=== PATIENT | female | born 1980 | race Caucasian/White ===

== ENCOUNTER 2021-04-03 19:27 | Emergency (ER) | payer OTHER ==
[2021-04-03 19:41] VITALS: TEMP 98.4; BMI 31.0
[2021-04-03] MEDS ORDERED: ACETAMINOPHEN 325 MG TABLET (FP) PO ONE (20:02)
[2021-04-03] MEDS ORDERED: ACETAMINOPHEN 325 MG TABLET (FP) ONE (20:26)
[2021-04-03 21:25] LABS: EPI CELLS 5 /uL (0-25.1); HYALINE CASTS 0 /uL (0-3.1); URINE APPEARANCE CLEAR; URINE BACTERIA 60 /uL (0-1359); URINE BILIRUBIN NEGATIVE (NEGATIVE); URINE COLOR YELLOW; URINE GLUCOSE (UA) NEGATIVE (NEGATIVE); URINE KETONE NEGATIVE (NEGATIVE); URINE LEUK ESTERASE NEGATIVE (NEGATIVE); URINE NITRITE NEGATIVE (NEGATIVE); URINE PROTEIN NEGATIVE (NEGATIVE); URINE RBC 45 /uL (0-23.9); URINE WBC 3 /uL (0-25.8)
[2021-04-03 23:03] VITALS: BP 115/73; PULSE 88
== END 2021-04-03 23:06 | disposition home or self-care (01) ==
LOC: JER 19:27
DX: O20.0 Threatened abortion (principal); O26.851 Spotting complicating pregnancy, first trimester; Z3A.01 Less than 8 weeks gestation of pregnancy
CPT/HCPCS: 36415; 76817-TC; 81003; 84702; 86850; 86900; 86901; 87086; 99284-25

== ENCOUNTER 2021-04-05 13:30 | Emergency (ER) | payer OTHER ==
[2021-04-05 13:47] VITALS: TEMP 98.2; BMI 31.0
[2021-04-05] MEDS ORDERED: ACETAMINOPHEN 1000 MG/100 ML VIAL (NON FORMULARY) IVPB ONE (14:25)
[2021-04-05] MEDS ORDERED: SODIUM CHLORIDE 0.9% 500 ML INFUS.BAG IV ONE (14:25)
[2021-04-05] MEDS ORDERED: ACETAMINOPHEN INJECTION 100 ML IVPB ONE (14:26)
[2021-04-05 14:29] LABS: BASO % 0.2 % (0-2.0); EOS % 3.4 % (0-4.5); HEMATOCRIT 38.8 % (32.4-45.2); HEMOGLOBIN 13.4 GM/dL (10.7-15.3); LYMPH % 14.1 % (8-40); MCHC 34.6 g/dl (32.0-36.0); MEAN CELL VOLUME 89.5 fl (80-96); MEAN PLT VOLUME 8.4 fl (7.5-11.1); MONO % 6.2 % (3.8-10.2); NEUT % 76.1 % (42.8-82.8); PLATELET COUNT 196 10^3/uL (134-434); RBC 4.34 M/mm3 (3.60-5.2); RDW 12.8 % (11.6-15.6); WHITE BLOOD COUNT 8.7 K/mm3 (4.0-10.0)
[2021-04-05 14:49] LABS: ALBUMIN 3.8 g/dl (3.4-5.0); BLOOD UREA NITROGEN 9.1 mg/dL (7-18); CALCIUM 8.7 mg/dL (8.5-10.1)
[2021-04-05 14:53] LABS: CREATININE 0.8 mg/dL (0.55-1.3)
[2021-04-05 14:54] LABS: BILIRUBIN,TOTAL 0.6 mg/dL (0.2-1); TOT PROT 7.3 g/dl (6.4-8.2)
[2021-04-05 15:34] LABS: PH,URINE 6.5 (5.0-8.0); URINE APPEARANCE CLEAR; URINE BILIRUBIN NEGATIVE (NEGATIVE); URINE COLOR YELLOW; URINE GLUCOSE (UA) NEGATIVE (NEGATIVE); URINE KETONE NEGATIVE (NEGATIVE); URINE LEUK ESTERASE NEGATIVE (NEGATIVE); URINE NITRITE NEGATIVE (NEGATIVE); URINE PROTEIN NEGATIVE (NEGATIVE); URINE UROBILINOGEN 0.2 mg/dL (0.2-1.0)
[2021-04-05 16:26] VITALS: BP 134/75; PULSE 80
[2021-04-05 16:32] LABS: URINE RBC 12.1 /uL (0-23.9); URINE WBC 3.6 /uL (0-25.8)
[2021-04-05 16:33] LABS: EPI CELLS 2.1 /uL (0-25.1); HYALINE CASTS 0.12 /uL (0-3.1); URINE BACTERIA 24.2 /uL (0-1359)
== END 2021-04-05 18:47 | disposition home or self-care (01) ==
LOC: JER 13:30
PROC: 3E0333Z Introduction of Anti-inflammatory into Peripheral Vein, Percutaneous Approach (ICD-10-PCS; principal; 2021-04-05)
DX: O03.9 Complete or unspecified spontaneous abortion without complication (principal)
CPT/HCPCS: 36415; 76817-TC; 80053; 81003; 84702; 85025; 87086; 99284-25; J0131

== ENCOUNTER 2021-08-16 18:56 | Emergency (ER) | payer OTHER ==
[2021-08-16 19:14] VITALS: TEMP 98.1; BMI 28.0
[2021-08-16 20:50] LABS: BASO % 0.2 % (0-2.0); EOS % 5.4 % (0-4.5); HEMATOCRIT 38.3 % (32.4-45.2); HEMOGLOBIN 13.2 GM/dL (10.7-15.3); MCH 30.5 pg (25.7-33.7); MCHC 34.4 g/dl (32.0-36.0); MEAN CELL VOLUME 88.7 fl (80-96); MEAN PLT VOLUME 8.7 fl (7.5-11.1); MONO % 6.9 % (3.8-10.2); NEUT % 60.5 % (42.8-82.8); PLATELET COUNT 196 10^3/uL (134-434); RBC 4.32 M/mm3 (3.60-5.2); RDW 13.3 % (11.6-15.6); WHITE BLOOD COUNT 5.8 K/mm3 (4.0-10.0)
[2021-08-16 20:57] LABS: CHLORIDE 110 mmol/L (98-107); SODIUM 142 mmol/L (136-145)
[2021-08-16 20:59] LABS: CALCIUM 8.3 mg/dL (8.5-10.1)
[2021-08-16 21:00] LABS: ALBUMIN 3.6 g/dl (3.4-5.0); ANION GAP 4 MMOL/L (8-16); BLOOD UREA NITROGEN 13.9 mg/dL (7-18); CO2 28 mmol/L (21-32); GLUCOSE,RANDOM 105 mg/dL (74-106)
[2021-08-16 21:03] LABS: CREATININE 0.9 mg/dL (0.55-1.3); SGOT/AST 14 U/L (15-37); SGPT/ALT 29 U/L (13-61)
[2021-08-16 21:05] LABS: BILIRUBIN,TOTAL 0.4 mg/dL (0.2-1)
[2021-08-16 21:06] LABS: ALK PHOS 47 U/L (45-117)
[2021-08-17 00:08] VITALS: BP 130/76; PULSE 86
== END 2021-08-17 00:09 | disposition home or self-care (01) ==
LOC: JER 18:56
DX: R07.9 Chest pain, unspecified (principal); F41.9 Anxiety disorder, unspecified
CPT/HCPCS: 36415; 71046-TC-FY; 71275-TC; 80053; 84484; 84702; 85025; 85379; 93005; 93010; 99285-25; Q9967

== ENCOUNTER 2021-11-12 01:32 | Observation (INO) | payer OTHER ==
[2021-11-12 02:45] LABS: BASO % 0.2 % (0-2.0); EOS % 2.7 % (0-4.5); HEMATOCRIT 41.1 % (32.4-45.2); HEMOGLOBIN 14.1 GM/dL (10.7-15.3); LYMPH % 18.1 % (8-40); MCH 30.7 pg (25.7-33.7); MCHC 34.2 g/dl (32.0-36.0); MEAN CELL VOLUME 89.8 fl (80-96); MEAN PLT VOLUME 8.7 fl (7.5-11.1); MONO % 6.4 % (3.8-10.2); NEUT % 72.6 % (42.8-82.8); PLATELET COUNT 209 10^3/uL (134-434); RBC 4.58 M/mm3 (3.60-5.2); RDW 13.1 % (11.6-15.6); WHITE BLOOD COUNT 6.9 K/mm3 (4.0-10.0)
[2021-11-12 03:04] LABS: CHLORIDE 107 mmol/L (98-107); SODIUM 141 mmol/L (136-145)
[2021-11-12 03:07] LABS: ALBUMIN 4.1 g/dl (3.4-5.0); ANION GAP 3 MMOL/L (8-16); BLOOD UREA NITROGEN 17.6 mg/dL (7-18); CO2 31 mmol/L (21-32); GLUCOSE,RANDOM 109 mg/dL (74-106); MAGNESIUM 2.1 mg/dL (1.8-2.4)
[2021-11-12 03:10] LABS: PHOSPHOROUS 3.3 mg/dL (2.5-4.9); SGOT/AST 23 U/L (15-37); SGPT/ALT 42 U/L (13-61)
[2021-11-12 03:12] LABS: BILIRUBIN,TOTAL 0.4 mg/dL (0.2-1); TOT PROT 7.9 g/dl (6.4-8.2)
[2021-11-12 03:13] LABS: ALK PHOS 70 U/L (45-117)
[2021-11-12] MEDS ORDERED: ACETAMINOPHEN 325 MG TABLET (FP) PO PRN (05:16)
[2021-11-12 07:57] LABS: BASO % 0.1 % (0-2.0); EOS % 1.5 % (0-4.5); HEMOGLOBIN 13.4 GM/dL (10.7-15.3); LYMPH % 18.3 % (8-40); MCH 30.8 pg (25.7-33.7); MCHC 34.3 g/dl (32.0-36.0); MEAN PLT VOLUME 8.8 fl (7.5-11.1); MONO % 4.4 % (3.8-10.2); NEUT % 75.7 % (42.8-82.8); PLATELET COUNT 202 10^3/uL (134-434); RBC 4.33 M/mm3 (3.60-5.2); RDW 12.9 % (11.6-15.6); WHITE BLOOD COUNT 5.4 K/mm3 (4.0-10.0)
[2021-11-12 08:11] LABS: MAGNESIUM 1.9 mg/dL (1.8-2.4)
[2021-11-12 08:12] LABS: ALBUMIN 3.8 g/dl (3.4-5.0); BLOOD UREA NITROGEN 16.2 mg/dL (7-18)
[2021-11-12 08:14] LABS: CREATININE 0.9 mg/dL (0.55-1.3)
[2021-11-12 08:15] LABS: PHOSPHOROUS 3.5 mg/dL (2.5-4.9)
[2021-11-12 08:16] LABS: TOT PROT 7.1 g/dl (6.4-8.2)
[2021-11-12 08:17] LABS: BILIRUBIN,TOTAL 0.4 mg/dL (0.2-1)
[2021-11-12 09:20] LABS: ACTIVATED PTT 28.9 SECONDS (25.2-36.5); INR 1.04 (0.83-1.09)
[2021-11-12] MEDS ORDERED: ASPIRIN 81 MG CHEWABLE TABLETS ONE (10:16)
[2021-11-12] MEDS ORDERED: ENOXAPARIN NA (PORCINE) 40 MG/0.4 ML DISP.SYRIN SQ ONE (10:17)
[2021-11-12] MEDS: ENOXAPARIN NA (PORCINE) 40 MG/0.4 ML DISP.SYRIN SQ SCH (10:23)
[2021-11-12] MEDS ORDERED: ASPIRIN 81 MG CHEWABLE TABLETS PO ONE (10:30)
[2021-11-12 14:29] LABS: EPI CELLS 9 /uL (0-25.1); HYALINE CASTS 0 /uL (0-3.1); PH,URINE 6.5 (5.0-8.0); URINE APPEARANCE CLEAR; URINE BACTERIA 51 /uL (0-1359); URINE BILIRUBIN NEGATIVE (NEGATIVE); URINE COLOR YELLOW; URINE GLUCOSE (UA) NEGATIVE (NEGATIVE); URINE KETONE NEGATIVE (NEGATIVE); URINE LEUK ESTERASE NEGATIVE (NEGATIVE); URINE NITRITE NEGATIVE (NEGATIVE); URINE PROTEIN NEGATIVE (NEGATIVE); URINE RBC 53 /uL (0-23.9); URINE UROBILINOGEN 0.2 mg/dL (0.2-1.0); URINE WBC 5 /uL (0-25.8)
[2021-11-13 00:30] VITALS: BMI 31.6
[2021-11-13 08:26] LABS: BASO % 0.3 % (0-2.0); EOS % 3.4 % (0-4.5); HEMATOCRIT 39.6 % (32.4-45.2); HEMOGLOBIN 13.2 GM/dL (10.7-15.3); LYMPH % 32.8 % (8-40); MCH 30.2 pg (25.7-33.7); MCHC 33.4 g/dl (32.0-36.0); MEAN CELL VOLUME 90.3 fl (80-96); MEAN PLT VOLUME 9.5 fl (7.5-11.1); MONO % 7.7 % (3.8-10.2); NEUT % 55.8 % (42.8-82.8); PLATELET COUNT 202 10^3/uL (134-434); RBC 4.39 M/mm3 (3.60-5.2); RDW 13.1 % (11.6-15.6); WHITE BLOOD COUNT 4.7 K/mm3 (4.0-10.0)
[2021-11-13 08:47] LABS: CALCIUM 8.1 mg/dL (8.5-10.1)
[2021-11-13 08:48] VITALS: BP 130/70; PULSE 86; TEMP 98.8
[2021-11-13 08:48] LABS: BLOOD UREA NITROGEN 18.2 mg/dL (7-18)
[2021-11-13 08:51] LABS: CREATININE 0.8 mg/dL (0.55-1.3)
[2021-11-13] MEDS: ENOXAPARIN NA (PORCINE) 40 MG/0.4 ML DISP.SYRIN SQ SCH (09:37)
== END 2021-11-13 14:38 | disposition home or self-care (01) ==
LOC: JER 01:32 → SUATTDRO 01:32 → JERBED 04:04 → J4W 23:49
PROVIDERS: ADMIT Internal Medicine; ATTEND Internal Medicine
PROC: 3E023GC Introduction of Other Therapeutic Substance into Muscle, Percutaneous Approach (ICD-10-PCS; principal; 2021-11-12)
DX: I47.1 Supraventricular tachycardia (principal); R00.2 Palpitations; I10 Essential (primary) hypertension; R79.89 Other specified abnormal findings of blood chemistry; R07.89 Other chest pain
CPT/HCPCS: 36415; 71045-TC-FY; 71046-TC-FY; 80048; 80053; 80061; 81003; 82962; 83036; 83735; 84100; 84439; 84443; 84481; 84484; 84703; 85025; 85610; 85730; 87086; 93005; 93010; 93306-TC; 93351; 96372; 99285-25; C9803; G0378; U0003; U0005

== ENCOUNTER 2021-12-03 09:44 | Emergency (ER) | payer OTHER ==
[2021-12-03 09:58] VITALS: TEMP 98.5; BMI 31.0
[2021-12-03 12:44] LABS: BASO % 0.1 % (0-2.0); EOS % 1.6 % (0-4.5); HEMATOCRIT 40.8 % (32.4-45.2); HEMOGLOBIN 13.8 GM/dL (10.7-15.3); LYMPH % 16.7 % (8-40); MCH 30.6 pg (25.7-33.7); MCHC 33.8 g/dl (32.0-36.0); MEAN CELL VOLUME 90.6 fl (80-96); MEAN PLT VOLUME 9.3 fl (7.5-11.1); MONO % 6.3 % (3.8-10.2); NEUT % 75.3 % (42.8-82.8); PLATELET COUNT 202 10^3/uL (134-434); RDW 12.8 % (11.6-15.6); WHITE BLOOD COUNT 5.7 K/mm3 (4.0-10.0)
[2021-12-03 13:05] LABS: BLOOD UREA NITROGEN 12.8 mg/dL (7-18)
[2021-12-03 13:08] LABS: CREATININE 0.8 mg/dL (0.55-1.3)
[2021-12-03 13:10] LABS: TOT PROT 7.6 g/dl (6.4-8.2)
[2021-12-03 13:37] LABS: CALCIUM 8.5 mg/dL (8.5-10.1)
[2021-12-03 14:38] LABS: EPI CELLS 10 /uL (0-25.1); HYALINE CASTS 1 /uL (0-3.1); PH,URINE 5.5 (5.0-8.0); URINE APPEARANCE CLEAR; URINE BACTERIA 83 /uL (0-1359); URINE BILIRUBIN NEGATIVE (NEGATIVE); URINE COLOR YELLOW; URINE GLUCOSE (UA) NEGATIVE (NEGATIVE); URINE KETONE TRACE (NEGATIVE); URINE LEUK ESTERASE NEGATIVE (NEGATIVE); URINE NITRITE NEGATIVE (NEGATIVE); URINE PROTEIN NEGATIVE (NEGATIVE); URINE RBC 23 /uL (0-23.9); URINE UROBILINOGEN 0.2 mg/dL (0.2-1.0); URINE WBC 22 /uL (0-25.8)
[2021-12-03 16:04] VITALS: BP 134/79; PULSE 67
== END 2021-12-03 16:04 | disposition home or self-care (01) ==
LOC: JER 09:44
DX: R00.2 Palpitations (principal); R07.9 Chest pain, unspecified; R42 Dizziness and giddiness
CPT/HCPCS: 36415; 71046-TC-FY; 80053; 81003; 83735; 84484; 84703; 85025; 87086; 93005; 93010; 99285-25

== ENCOUNTER 2024-06-22 09:34 | Emergency (ER) | payer OTHER ==
[2024-06-22 09:42] VITALS: BP 121/66; PULSE 78; RESP 18; TEMP 98.1; BMI 34.0
[2024-06-22] MEDS ORDERED: ACETAMINOPHEN INJECTION 100 ML ONE (10:47)
[2024-06-22] MEDS ORDERED: ACETAMINOPHEN 500 MG TABLET (FP) ONE (10:57)
[2024-06-22] MEDS ORDERED: ONDANSETRON *ODT* 4 MG TABLET ONE (10:58)
[2024-06-22] MEDS: ACETAMINOPHEN 500 MG TABLET (FP) PO ONE (11:06)
[2024-06-22] MEDS: ONDANSETRON *ODT* 4 MG TABLET SL ONE (11:06)
[2024-06-22] MEDS: ACETAMINOPHEN 1000 MG/100 ML BAG IVPB ONE (11:10)
[2024-06-22] MEDS: SODIUM CHLORIDE 0.9% 500 ML INFUS.BAG IV ONE (11:10)
[2024-06-22 11:28] LABS: EPI CELLS 8 /uL (0-25.1); HYALINE CASTS 0 /uL (0-3.1); PH,URINE 5.5 (5.0-8.0); URINE APPEARANCE CLEAR; URINE BACTERIA 143 /uL (0-1359); URINE BILIRUBIN NEGATIVE (NEGATIVE); URINE COLOR YELLOW; URINE GLUCOSE (UA) NEGATIVE (NEGATIVE); URINE KETONE NEGATIVE (NEGATIVE); URINE LEUK ESTERASE 1+ (NEGATIVE); URINE NITRITE NEGATIVE (NEGATIVE); URINE PROTEIN 1+ (NEGATIVE); URINE RBC 9625 /uL (0-23.9); URINE UROBILINOGEN 0.2 mg/dL (0.2-1.0); URINE WBC 148 /uL (0-25.8)
== END 2024-06-22 13:39 | disposition home or self-care (01) ==
LOC: JERFT 09:34 → JER 09:34 → JERFT 13:39
DX: O03.4 Incomplete spontaneous abortion without complication (principal); R11.0 Nausea; R10.30 Lower abdominal pain, unspecified
CPT/HCPCS: 36415; 81003; 84702; 84703; 87086; 99284-25; Q0162